=== PATIENT | male | born 1950 | race Caucasian/White ===

== ENCOUNTER 2016-06-27 09:28 | Emergency (ER) | payer MEDICARE, BC ==
[2016-06-27 09:50] VITALS: BP 153/101
--- NOTE | 2016-06-27 10:10 | EDM.PDOC ---
ED HPI GENERAL MEDICAL PROBLEM - General Chief Complaint: Neuro Symptoms/Deficits Stated Complaint: NUMBNESS / BURNING IN LIMBS Time Seen by Provider: 06/27/16 09:55 Source of Information: Reports: Patient, RN notes reviewed History Limitations: Reports: No limitations - History of Present Illness INITIAL COMMENTS - FREE TEXT/NARRATIVE: 65-year-old gentleman presents emergency department today with complaint of bilateral leg pain and burning superficial on the skin also has had difficulty with bilateral arm numbness he complains of more fatigue than usual has recently been on a long trip out to [facility]. Symptoms have been ongoing for one day initially rated the pain 10 out of 10 this has improved to 2 /10 with no intervention Bilateral Leg Pain Score (Numeric/FACES): 2 - Related Data Allergies Allergy/AdvReac Type Severity Reaction Status Date / Time erythromycin base Allergy Dizziness Verified 06/27/16 09:40 [From Mohsen-Tab] Home Meds: Home Meds Albuterol Sulfate [Proair Respiclick] 90 mcg IH Q4H 01/11/16 [History] Past Medical History HEENT History: Reports: Impaired vision Cardiovascular History: Reports: Hypertension Respiratory History: Reports: COPD Gastrointestinal History: Reports: Cholelithiasis, GERD Genitourinary History: Reports: Prostate disorder Other Genitourinary History: kidney cyst Musculoskeletal History: Reports: Back pain, chronic, Fracture, Osteoarthritis Neurological History: Reports: Concussion, Headaches, chronic - Infectious Disease History Infectious Disease History: Reports: Chicken pox, Measles, Mumps - Past Surgical History GI Surgical History: Reports: Cholecystectomy, Colonoscopy Neurological Surgical History: Reports: Lumbar spine Musculoskeletal Surgical History: Reports: Shoulder surgery, Other (see below) Other Musculoskeletal Surgeries/Procedures:: hand surgery Social & Family History - Tobacco Use Smoking Status *Q: Never Smoker Years of Tobacco use: 40 Second Hand Smoke Exposure: No - Caffeine Use Caffeine Use: Reports: Coffee - Alcohol Use Days Per Week of Alcohol Use: 0 - Recreational Drug Use Recreational Drug Use: No ED ROS GENERAL - Review of Systems Review Of Systems: See Below Constitutional: Reports: no symptoms HEENT: Reports: No symptoms Respiratory: Reports: No Symptoms Cardiovascular: Reports: No symptoms GI/Abdominal: Reports: No symptoms : Reports: no symptoms Musculoskeletal: Reports: leg pain Skin: Reports: no symptoms Neurological: Reports: Paresthesia, Tingling ED EXAM, GENERAL - Physical Exam Exam: See Below Free Text/Narrative:: General: Male, not in any distress, alert and oriented x3 HEENT: head is atraumatic normocephalic, eyes pupils equal round reactive to light, sclera clear no conjunctivitis appreciated. Ears tympanic membranes clear and looney landmarks and light reflex are present bilaterally canals are clear. Nose no septal deviation, nares are clear, no blood present. Mouth mucosa is moist and pink no erythema or exudate noted in soft palate, tongue is midline uvula is midline, dentition is intact. Neck: Supple no thyromegaly no tracheal deviation. Nodes: Cervical nodes subclavicular nodes nontender no palpable lymphadenopathy noted. Lungs: clear to auscultation bilaterally with symmetrical respirations, no adventitious noise appreciated. CV: Regular rate and rhythm S1 and S2 appreciated no murmurs rubs or gallops noted. Abdomen: Soft, nontender, no palpable masses or organomegaly appreciated, no distention no guarding bowel sounds are present, . Neuro: Cranial nerves II through XII grossly intact Skin: Warm and dry, intact Extremities: No lower extremity edema appreciated, Course - Vital Signs Last Recorded V/S: Last Vital Signs Temp 94.1 F L 06/27/16 09:48 Pulse 91 06/27/16 09:48 Resp 16 06/27/16 09:48 BP 153/101 H 06/27/16 09:48 Pulse Ox 97 06/27/16 09:48 - Orders/Labs/Meds Orders: Active Orders 24 hr Category Date Time Status VL Duplex Lwr Ext Veins Comp [US] Stat Exams 06/27/16 11:20 Ordered BABESIA MICROTI IGG AND IGM [REF] Urgent Lab 06/27/16 10:18 Received EHRLICHIA CHAFFEENSIS, IGG&IGM [REF] Urgent Lab 06/27/16 10:18 Received LYME AB SCREEN RFLX [REF] Urgent Lab 06/27/16 10:18 Received Labs: Laboratory Tests 06/27/16 06/27/16 06/27/16 Range/Units 10:17 10:17 10:17 WBC 4.6 (4.5-11.0) K/uL RBC 5.31 (4.30-5.90) M/uL Hgb 15.5 H (12.0-15.0) g/dL Hct 47.5 (40.0-54.0) % MCV 90 (80-98) fL MCH 29 (27-31) pg MCHC 33 (32-36) % Plt Count 159 (150-400) K/uL Neut % (Auto) 44 (36-66) % Lymph % (Auto) 36 (24-44) % Webb % (Auto) 17 H (2-6) % Eos % (Auto) 2 (2-4) % Baso % (Auto) 1 (0-1) % ESR 10 (0-20) mm/hr D-Dimer, Quantitative 1760 H (0.0-400.0) ng/mL Sodium (140-148) mmol/L Potassium (3.6-5.2) mmol/L Chloride (100-108) mmol/L Carbon Dioxide (21-32) mmol/L Anion Gap (5.0-14.0) mmol/L BUN (7-18) mg/dL Creatinine (0.8-1.3) mg/dL Est Cr Clr Drug Dosing mL/min Estimated GFR (MDRD) (>60) Glucose (74-106) mg/dL Calcium (8.5-10.1) mg/dL Total Bilirubin (0.2-1.0) mg/dL AST (15-37) U/L ALT (12-78) U/L Alkaline Phosphatase (46-116) U/L Creatine Kinase 177 (39-308) U/L C-Reactive Protein (0.0-0.3) mg/dL Total Protein (6.4-8.2) g/dL Albumin (3.4-5.0) g/dL Globulin (2.3-3.5) g/dL Albumin/Globulin Ratio (1.2-2.2) TSH, Ultra Sensitive (0.358-3.740) uIU/mL Urine Color Urine Appearance Urine pH (4.5-8.0) Ur Specific Reliance (1.008-1.030) Urine Protein (NEGATIVE) mg/dL Urine Glucose (UA) (NEGATIVE) mg/dL Urine Ketones (NEGATIVE) mg/dL Urine Occult Blood (NEGATIVE) Urine Nitrite (NEGAITVE) Urine Bilirubin (NEGATIVE) Urine Urobilinogen (NORMAL) mg/dL Ur Leukocyte Esterase (NEGATIVE) Urine RBC (0-5) Urine WBC (0-5) Ur Epithelial Cells Amorphous Sediment Urine Bacteria Urine Mucus 06/27/16 06/27/16 Range/Units 10:17 10:59 WBC (4.5-11.0) K/uL RBC (4.30-5.90) M/uL Hgb (12.0-15.0) g/dL Hct (40.0-54.0) % MCV (80-98) fL MCH (27-31) pg MCHC (32-36) % Plt Count (150-400) K/uL Neut % (Auto) (36-66) % Lymph % (Auto) (24-44) % Webb % (Auto) (2-6) % Eos % (Auto) (2-4) % Baso % (Auto) (0-1) % ESR (0-20) mm/hr D-Dimer, Quantitative (0.0-400.0) ng/mL Sodium 137 L (140-148) mmol/L Potassium 4.0 (3.6-5.2) mmol/L Chloride 102 (100-108) mmol/L Carbon Dioxide 27 (21-32) mmol/L Anion Gap 12.0 (5.0-14.0) mmol/L BUN 20 H (7-18) mg/dL Creatinine 1.3 (0.8-1.3) mg/dL Est Cr Clr Drug Dosing 66.81 mL/min Estimated GFR (MDRD) 55 L (>60) Glucose 97 (74-106) mg/dL Calcium 8.3 L (8.5-10.1) mg/dL Total Bilirubin 0.6 (0.2-1.0) mg/dL AST 47 H D (15-37) U/L ALT 64 D (12-78) U/L Alkaline Phosphatase 100 (46-116) U/L Creatine Kinase (39-308) U/L C-Reactive Protein 2.40 H (0.0-0.3) mg/dL Total Protein 7.7 (6.4-8.2) g/dL Albumin 3.6 (3.4-5.0) g/dL Globulin 4.1 H (2.3-3.5) g/dL Albumin/Globulin Ratio 0.9 L (1.2-2.2) TSH, Ultra Sensitive 3.324 (0.358-3.740) uIU/mL Urine Color Yellow Urine Appearance Clear Urine pH 5.0 (4.5-8.0) Ur Specific Reliance 1.025 (1.008-1.030) Urine Protein Negative (NEGATIVE) mg/dL Urine Glucose (UA) Normal (NEGATIVE) mg/dL Urine Ketones 15 H (NEGATIVE) mg/dL Urine Occult Blood Moderate (NEGATIVE) Urine Nitrite Negative (NEGAITVE) Urine Bilirubin Small (NEGATIVE) Urine Urobilinogen 1 (NORMAL) mg/dL Ur Leukocyte Esterase Negative (NEGATIVE) Urine RBC 0-5 (0-5) Urine WBC 0-5 (0-5) Ur Epithelial Cells Rare Amorphous Sediment See note Urine Bacteria Not seen Urine Mucus Not seen Departure - Departure Time of Disposition: 12:03 Disposition: Home, Self-Care 01 Condition: fair Clinical Impression: Bilateral leg paresthesia Forms: ED Department Discharge Additional Instructions: Continue to use Aleve, Motrin as needed, Please followup with your primary care provider in 7-10 days if not better, please call return to the emergency department with worsening of symptoms. - My Orders Last 24 Hours: My Active Orders 06/27/16 10:18 BABESIA MICROTI IGG AND IGM [REF] Urgent EHRLICHIA CHAFFEENSIS, IGG&IGM [REF] Urgent LYME AB SCREEN RFLX [REF] Urgent 06/27/16 11:20 VL Duplex Lwr Ext Veins Comp [US] Stat - Assessment/Plan Last 24 Hours: My Active Orders 06/27/16 10:18 BABESIA MICROTI IGG AND IGM [REF] Urgent EHRLICHIA CHAFFEENSIS, IGG&IGM [REF] Urgent LYME AB SCREEN RFLX [REF] Urgent 06/27/16 11:20 VL Duplex Lwr Ext Veins Comp [US] Stat Plan: Assessment Acuity = acute Site and laterality = bilateral leg numbness anterior lateral aspect Etiology = unclear etiology Manifestations = none Location of injury = home Lab values = d-dimer elevated at [id number] unclear etiology sodium low at 137 consistent hyponatremia AST mildly elevated at 47 TSH normal at 3.32 consistent with euthyroid urinalysis unremarkable ultrasound negative for any DVT Plan I did review lab work and ultrasound results with him he states the numbness and tingling has improved from yesterday tick panel is pending, plan is to follow up with his primary care provider in 7-10 days for reevaluation at which time the tick panel should be back Patient was in agreement with the plan all questions were answered, they were instructed to return to the emergency department or call for worsening symptoms. This note was dictated using Blackboard voice recognition software please call with any questions.
--- NOTE | 2016-06-27 13:22 | US ---
VL Duplex Lwr Ext Veins Comp HISTORY: Swelling, pain. FINDINGS: The deep veins of the lower extremities bilaterally demonstrate normal augmentation and co mpressibility. No evidence for deep venous thrombosis. IMPRESSION: Normal bilateral lower extremity venous Doppler ultrasound.
== END 2016-06-27 12:18 | disposition home or self-care (01) ==
LOC: JP.ED 09:28
DX: R20.2 Paresthesia of skin (principal); I10 Essential (primary) hypertension; J44.9 Chronic obstructive pulmonary disease, unspecified; K21.9 Gastro-esophageal reflux disease without esophagitis; M19.90 Unspecified osteoarthritis, unspecified site; Z88.1 Allergy status to other antibiotic agents; Z90.49 Acquired absence of other specified parts of digestive tract
CPT/HCPCS: 36415; 80053; 81001; 82550; 84443; 85025; 85379; 85651; 86140; 86618; 86666; 86666-59; 86753; 93970; 93970-26; 99282; 99284-25

== ENCOUNTER 2017-06-19 07:57 | Emergency (ER) | payer MEDICARE, BC ==
[2017-06-19 08:11] VITALS: BP 163/93
[2017-06-19] MEDS ORDERED: Albuterol/Ipratropium 3.0-0.5 MG/3 ML Neb Soln NEB ONE (08:25)
--- NOTE | 2017-06-19 08:31 | EDM.PDOC ---
ED HPI GENERAL MEDICAL PROBLEM - General Chief Complaint: Respiratory Problem Stated Complaint: COUGHING SOB Time Seen by Provider: 06/19/17 08:15 Source of Information: Reports: Patient, Old Records, RN History Limitations: Reports: No Limitations - History of Present Illness INITIAL COMMENTS - FREE TEXT/NARRATIVE: 66 yo male here with a non-productive cough for about 5 weeks. Has not been to the clinic(too hard to get in). No fever. Minimal SOB. Gets partial relief with his albuterol inhaler. Quit smoking about 5 yrs ago. Has been traveling a lot lately. R ear is plugged as well. No sneezing, but does have some rhinorrhea/ congestion. Onset Date: 05/15/17 Duration: Week(s):, Constant Location: Reports: Chest Severity: Mild Improves with: Reports: Rest Worsens with: Reports: Other (activity) Context: Reports: Other (Hx of mild COPD) Associated Symptoms: Reports: Cough, Shortness of Breath (minimal). 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) - Related Data Allergies Allergy/AdvReac Type Severity Reaction Status Date / Time erythromycin base Allergy Dizziness Verified 06/19/17 08:11 [From Mohsen-Tab] Home Meds: Home Meds Albuterol Sulfate [Proair Respiclick] 90 mcg IH Q4H 01/11/16 [History] Azithromycin [IJD: Azithromycin] 250 mg PO DAILY #6 tab 06/19/17 [Rx] Past Medical History HEENT History: Reports: Impaired Vision Cardiovascular History: Reports: Hypertension Respiratory History: Reports: COPD Gastrointestinal History: Reports: Cholelithiasis, GERD Genitourinary History: Reports: Prostate Disorder Other Genitourinary History: kidney cyst Musculoskeletal History: Reports: Back Pain, Chronic, Fracture, Osteoarthritis Neurological History: Reports: Concussion, Headaches, Chronic - Infectious Disease History Infectious Disease History: Reports: Chicken Pox, Measles, Mumps - Past Surgical History GI Surgical History: Reports: Cholecystectomy, Colonoscopy Neurological Surgical History: Reports: Lumbar Spine Musculoskeletal Surgical History: Reports: Shoulder Surgery, Other (See Below) Social & Family History - Tobacco Use Smoking Status *Q: Former Smoker Years of Tobacco use: 40 Used Tobacco, but Quit: Yes Month/Year Tobacco Last Used: 5 years Second Hand Smoke Exposure: No - Caffeine Use Caffeine Use: Reports: Coffee - Alcohol Use Days Per Week of Alcohol Use: 0 - Recreational Drug Use Recreational Drug Use: No ED ROS GENERAL - Review of Systems Review Of Systems: See Below Constitutional: Reports: No Symptoms HEENT: Reports: Ear Pain (mild on the R with plugging/decreased hearing), Rhinitis. Denies: Ear Discharge, Throat Pain Respiratory: Reports: Shortness of Breath (minimal), Cough, Sputum (rare). Denies: Wheezing, Pleuritic Chest Pain, Hemoptysis Cardiovascular: Reports: No Symptoms GI/Abdominal: Reports: No Symptoms : Reports: No Symptoms Musculoskeletal: Reports: No Symptoms Skin: Reports: No Symptoms Neurological: Reports: No Symptoms ED EXAM, GENERAL - Physical Exam Exam: See Below Exam Limited By: No Limitations General Appearance: Alert, WD/WN, No Apparent Distress Eye Exam: Bilateral Eye: Normal Inspection Ears: Normal External Exam, Normal Canal, Hearing Grossly Normal Ear Exam: Left Ear: TM normal (R TM with some erythema and bulging), Bilateral Ear: Auricle Normal, Canal Normal Nose: Normal Inspection, Normal Mucosa, No Blood, Clear Rhinorrhea Throat/Mouth: Normal Inspection, Normal Lips, Normal Oropharynx, Normal Voice, No Airway Compromise Head: Atraumatic, Normocephalic Neck: Normal Inspection, Supple, Non-Tender Respiratory/Chest: No Respiratory Distress, Lungs Clear, Normal Breath Sounds, No Accessory Muscle Use Cardiovascular: Regular Rate, Rhythm GI/Abdominal: Soft, Non-Tender Extremities: Normal Inspection, Normal Range of Motion, Non-Tender Neurological: Alert, Oriented, CN II-XII Intact, Normal Cognition, No Motor/ Sensory Deficits Psychiatric: Normal Affect, Normal Mood Skin Exam: Warm, Dry, Intact, Normal Color, No Rash Course - Vital Signs Text/Narrative:: No change in Peak flow with Duoneb tx. Last Recorded V/S: Last Vital Signs Temp 35.7 C 06/19/17 08:06 Pulse 90 06/19/17 08:06 Resp 18 06/19/17 08:06 BP 163/93 H 06/19/17 08:06 Pulse Ox 97 06/19/17 08:06 - Orders/Labs/Meds Orders: Active Orders 24 hr Category Date Time Status RT Aerosol Therapy [RC] ASDIRECTED Care 06/19/17 08:26 Active RT Peak Flow Measurement [RC] ASDIRECTED Care 06/19/17 08:24 Active Labs: Laboratory Tests 06/19/17 Range/Units 08:32 WBC 9.2 (4.5-11.0) K/uL RBC 5.38 (4.30-5.90) M/uL Hgb 15.4 H (12.0-15.0) g/dL Hct 47.7 (40.0-54.0) % MCV 89 (80-98) fL MCH 29 (27-31) pg MCHC 32 (32-36) % Plt Count 266 (150-400) K/uL Meds: Medications Discontinued Medications Generic Name Dose Route Start Last Admin Trade Name Freq PRN Reason Stop Dose Admin Albuterol/Ipratropium 3 ml 06/19/17 08:25 06/19/17 08:35 Duoneb 3.0-0.5 Mg/3 Ml NEB 06/19/17 08:26 3 ml ONETIME ONE Administration - Radiology Interpretation Free Text/Narrative:: CXR-negative Departure - Departure Time of Disposition: 09:36 Disposition: Home, Self-Care 01 Condition: Good Clinical Impression: Bronchitis Otitis media Qualifiers: Otitis media type: unspecified nonsuppurative Laterality: right Qualified Code( s): H65.91 - Unspecified nonsuppurative otitis media, right ear - Discharge Information Prescriptions: Azithromycin [IJD: Azithromycin] 250 mg PO DAILY #6 tab Referrals: Prasad Drake MD [Primary Care Provider] - Forms: ED Department Discharge - My Orders Last 24 Hours: My Active Orders 06/19/17 08:24 RT Peak Flow Measurement [RC] ASDIRECTED 06/19/17 08:26 RT Aerosol Therapy [RC] ASDIRECTED - Assessment/Plan Last 24 Hours: My Active Orders 06/19/17 08:24 RT Peak Flow Measurement [RC] ASDIRECTED 06/19/17 08:26 RT Aerosol Therapy [RC] ASDIRECTED
--- NOTE | 2017-06-19 09:32 | CR ---
Chest 2V HISTORY: cough for 5 weeks FINDINGS: Lungs appear clear and normally aerated. Cardiomediastinal silhouette is within normal limits. No vas cular redistribution or pleural fluid can be seen. Small anterior aspects are noted diffusely along t he thoracic spine. IMPRESSION: No acute chest abnormality is identified.
== END 2017-06-19 09:53 | disposition home or self-care (01) ==
LOC: JP.ED 07:57
DX: J40 Bronchitis, not specified as acute or chronic (principal); H65.91 Unspecified nonsuppurative otitis media, right ear; I10 Essential (primary) hypertension; Z88.1 Allergy status to other antibiotic agents; Z87.891 Personal history of nicotine dependence
CPT/HCPCS: 36415; 71046; 85027; 94640; 99283; 99284; J7620

== ENCOUNTER 2018-07-10 21:58 | Emergency (ER) | payer MEDICARE, BC ==
[2018-07-10 22:26] VITALS: BP 159/84
--- NOTE | 2018-07-10 23:17 | EDM.PDOC ---
ED HPI GENERAL MEDICAL PROBLEM - General Chief Complaint: General Stated Complaint: DIZZY Time Seen by Provider: 07/10/18 22:37 Source of Information: Reports: Patient History Limitations: Reports: No Limitations - History of Present Illness INITIAL COMMENTS - FREE TEXT/NARRATIVE: chief complaint: dizziness This is a 67 year old male present to the ER via POV, reports this morning woke up with dizziness. reports he was getting out of bed when he got very dizzy, no loss of balance. went to the bathroom. 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 He was about 50% better at noon, then 6 pm at supper was getting better, then at 9 pm felt 90% better just 10% off. He took a hot bath, went to rinse the shampoo out of his hair, tipped his head back became extreme dizziness without loss of balance. decided to come to ER to get evaluated. denies chest pain, fever, chills, nausea, vomiting, diarrhea. no acute vision changes. Primary Care: Dr. Howe [place] or Dr. 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 Chronic Health Conditions: arthritis, vision, COPD, unknown sweating for 6 months with multi evaluation with unknown cause. 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 ) Bilateral Knee Pain Score (Numeric/FACES): 7 - Related Data Allergies Allergy/AdvReac Type Severity Reaction Status Date / Time erythromycin base Allergy Dizziness Verified 07/10/18 22:23 [From Mohsen-Tab] Home Meds: Home Meds Albuterol Sulfate [Proair Respiclick] 90 mcg IH Q4H PRN 01/11/16 [History] Ibuprofen/Diphenhydramine Cit [Advil Pm Caplet] 1 each PO BEDTIME 02/10/18 [ History] Ibuprofen [Advil] 400 mg PO Q8H PRN 03/20/18 [History] Past Medical History HEENT History: Reports: Impaired Vision, Other (See Below) Other HEENT History: recent retinal scans at [place] Cardiovascular History: Reports: Hypertension Respiratory History: Reports: COPD Gastrointestinal History: Reports: Cholelithiasis, GERD Genitourinary History: Reports: Prostate Disorder, Other (See Below) Other Genitourinary History: kidney cyst left Musculoskeletal History: Reports: Back Pain, Chronic, Fracture, Osteoarthritis Neurological History: Reports: Concussion, Headaches, Chronic Dermatologic History: Reports: Other (See Below) Other Dermatologic History: rash on feet. - Infectious Disease History Infectious Disease History: Reports: Chicken Pox, Measles, Mumps - Past Surgical History Respiratory Surgical History: Reports: None GI Surgical History: Reports: Cholecystectomy, Colonoscopy, Hernia Repair/Other Male Surgical History: Reports: Vasectomy Neurological Surgical History: Reports: Lumbar Spine Musculoskeletal Surgical History: Reports: Shoulder Surgery, Other (See Below) Other Musculoskeletal Surgeries/Procedures:: hand repair with pin. back surgery x4. Social & Family History - Tobacco Use Smoking Status *Q: Former Smoker Used Tobacco, but Quit: Yes Month/Year Tobacco Last Used: 6 years - Caffeine Use Caffeine Use: Reports: Coffee - Recreational Drug Use Recreational Drug Use: No - Living Situation & Occupation Living situation: Reports: Occupation: Other ([employer]) ED ROS GENERAL - Review of Systems Review Of Systems: See Below Constitutional: Reports: No Symptoms HEENT: Reports: No Symptoms Respiratory: Reports: No Symptoms Cardiovascular: Reports: No Symptoms Endocrine: Reports: No Symptoms GI/Abdominal: Reports: No Symptoms : Reports: No Symptoms Musculoskeletal: Reports: Other (chronic pain in joints due to arthritis) Skin: Reports: No Symptoms Neurological: Reports: Dizziness Psychiatric: Reports: No Symptoms Hematologic/Lymphatic: Reports: No Symptoms Immunologic: Reports: No Symptoms ED EXAM, GENERAL - Physical Exam Exam: See Below Exam Limited By: No Limitations General Appearance: Alert, WD/WN, No Apparent Distress Eye Exam: Bilateral Eye: EOMI, Normal Inspection, PERRL Ears: Normal External Exam, Normal Canal, Hearing Grossly Normal, Normal TMs Ear Exam: Bilateral Ear: Auricle Normal, Canal Normal, TM normal Nose: Normal Inspection, Normal Mucosa, No Blood Throat/Mouth: Normal Inspection, Normal Lips, Normal Teeth, Normal Gums, Normal Oropharynx, Normal Voice, No Airway Compromise Head: Atraumatic, Normocephalic Neck: Normal Inspection, Supple, Non-Tender, Full Range of Motion Respiratory/Chest: No Respiratory Distress, Lungs Clear, Normal Breath Sounds, No Accessory Muscle Use, Chest Non-Tender Cardiovascular: Normal Peripheral Pulses, Regular Rate, Rhythm, No Edema, No Gallop, No JVD, No Murmur, No Rub GI/Abdominal: Normal Bowel Sounds, Soft, Non-Tender, No Organomegaly, No Distention, No Abnormal Bruit, No Mass (Male) Exam: Deferred Rectal (Males) Exam: Deferred Back Exam: Normal Inspection Extremities: Normal Inspection, Normal Range of Motion, Normal Capillary Refill Neurological: No Motor/Sensory Deficits Psychiatric: Normal Affect, Normal Mood Lymphatic: No Adenopathy Course - Vital Signs Last Recorded V/S: Last Vital Signs Temp 35.7 C 07/10/18 22:25 Pulse 82 07/10/18 22:25 Resp 13 07/10/18 22:25 BP 159/84 H 07/10/18 22:25 Pulse Ox 95 07/10/18 22:25 - Orders/Labs/Meds Orders: Active Orders 24 hr Category Date Time Status UA W/MICROSCOPIC [URIN] Urgent Lab 07/10/18 22:37 Ordered - Re-Assessments/Exams Free Text/Narrative Re-Assessment/Exam: 07/10/18 23:28 discussed will order Head CT to rule out any acute process. labs urine for any infection declines IV or lab draws, doesn't like needles. Mr. Stokes agrees with plan of care. 07/11/18 00:35 CT scan is negative for acute process, review with Mr. Stokes and given copy of report CT scan. will treat for Vertigo. trial of Meclizine. advise to follow up in Primary Care for recheck, return to ER if not improved or symptoms worsen. 07/11/18 00:38 unable to void Departure - Departure Time of Disposition: 00:36 Disposition: Home, Self-Care 01 Condition: Good Clinical Impression: Dizziness after extension of neck - Discharge Information *PRESCRIPTION DRUG MONITORING PROGRAM REVIEWED*: Not Applicable *COPY OF PRESCRIPTION DRUG MONITORING REPORT IN PATIENT KEVIN: Not Applicable Instructions: Vertigo, [id number], Dizziness Referrals: PCP,None [Primary Care Provider] - Forms: ED Department Discharge Care Plan Goals: Dizziness -Meclizine 25 mg chew tablet every 8 hours as needed for dizziness -follow up in Primary Care for recheck -return to ER if symptoms worsen or not improved. Given copy of CT report. - Problem List & Annotations (1) Dizziness after extension of neck SNOMED Code(s): 830848964 Code(s): R42 - DIZZINESS AND GIDDINESS Status: Acute Priority: High Current Visit: Yes - Problem List Review Problem List Initiated/Reviewed/Updated: Yes - My Orders Last 24 Hours: My Active Orders 07/10/18 22:37 UA W/MICROSCOPIC [URIN] Urgent - Assessment/Plan Last 24 Hours: My Active Orders 07/10/18 22:37 UA W/MICROSCOPIC [URIN] Urgent Plan: Dizziness -Meclizine 25 mg chew tablet every 8 hours as needed for dizziness -follow up in Primary Care for recheck -return to ER if symptoms worsen or not improved. Given copy of CT report.
--- NOTE | 2018-07-11 00:02 | CRLCT ---
INDICATION: New onset dizziness TECHNIQUE: CT Head without i.v. contrast. COMPARISON: None FINDINGS: CSF space: Unremarkable for age. Brain: No evidence of mass, acute infarction or hemorrhage is seen. No mass-effect or midline shift is seen. Mild diffuse cortical atrophy is noted. The brain parenchyma is otherwise normal in appearance with preservation of the looney-white matter junction. Calvarium: The visualized paranasal sinuses are well aerated. The mastoid air cells are clear. The visualized orbits are grossly unremarkable. The calvarium is unremarkable in appearance with no fractures identified. IMPRESSION: 1. No evidence of acute infarction, intracranial hemorrhage, or mass-effect seen. Please note that all CT scans at this facility use dose modulation, iterative reconstruction, and/or weight-based dosing when appropriate to reduce radiation dose to as low as reasonably achievable. Dictated by: Teja Sandhu MD @ 07/10/2018 23:59:25 (Electronically Signed)
[2018-07-11] MEDS ORDERED: Meclizine 25 MG Tab PO ONE (00:38)
== END 2018-07-11 00:55 | disposition home or self-care (01) ==
LOC: JP.ED 21:58
DX: R42 Dizziness and giddiness (principal); I10 Essential (primary) hypertension; J44.9 Chronic obstructive pulmonary disease, unspecified; K21.9 Gastro-esophageal reflux disease without esophagitis; Z88.1 Allergy status to other antibiotic agents; Z87.891 Personal history of nicotine dependence
CPT/HCPCS: 70450; 99284-25

== ENCOUNTER 2019-03-05 09:58 | Emergency (ER) | payer MEDICARE, BC ==
[2019-03-05] MEDS ORDERED: Morphine 4 MG/ML Syringe IVPUSH PRN (10:06)
[2019-03-05] MEDS ORDERED: Heparin Sodium 5,000 Units/ML Vial IVPUSH ONE (10:06)
[2019-03-05] MEDS ORDERED: Clopidogrel 75 MG Tab PO ONE (10:06)
[2019-03-05] MEDS ORDERED: Ondansetron 4 MG/2 ML SDV IVPUSH ONE (10:06)
[2019-03-05] MEDS ORDERED: Aspirin 81 MG Tab.Chew PO ONE (10:06)
[2019-03-05] MEDS ORDERED: Sodium Chloride 0.9% 10 ML Syringe FLUSH PRN (10:06)
[2019-03-05] MEDS: Nitroglycerin 0.4 MG Tab.SL SL PRN ×2 (10:21→10:26)
[2019-03-05] MEDS ORDERED: LORazepam 2 MG/ML SDV IVPUSH ONE (10:23)
[2019-03-05] MEDS ORDERED: LORazepam 2 MG/ML SDV ONE (10:26)
[2019-03-05] MEDS ORDERED: Nitroglycerin/D5W 25 MG/250 ML BOTTLE IV SCH (10:30)
[2019-03-05] MEDS ORDERED: Heparin Sodium/D5W 25,000 UNITS/500 ML BAG IV SCH (10:30)
--- NOTE | 2019-03-05 10:35 | EDM.PDOC ---
ED HPI GENERAL MEDICAL PROBLEM - General Chief Complaint: Chest Pain Stated Complaint: S.O.B. AND CHEST PAINS Time Seen by Provider: 03/05/19 10:01 Source of Information: Reports: Patient, RN Notes Reviewed History Limitations: Reports: No Limitations - History of Present Illness INITIAL COMMENTS - FREE TEXT/NARRATIVE: 68-year-old gentleman presents emergency department today complaint of chest pain and shortness of breath he states the chest pain started about 30 minutes prior to his presentation to the ED he is very sweaty he feels short of breath no nausea he has no cardiac history other than his father in his 50s from a myocardial infarction he does have a remote tobacco use history. pain Pain Score (Numeric/FACES): 5 - Related Data Allergies Allergy/AdvReac Type Severity Reaction Status Date / Time erythromycin base Allergy Dizziness Verified 03/05/19 10:07 [From Mohsen-Tab] Home Meds: Home Meds Albuterol Sulfate [Proair Respiclick] 90 mcg IH Q4H PRN 01/11/16 [History] Ibuprofen/Diphenhydramine Cit [Advil Pm Caplet] 1 each PO BEDTIME 02/10/18 [ History] Ibuprofen [Advil] 400 mg PO Q8H PRN 03/20/18 [History] Past Medical History HEENT History: Reports: Impaired Vision, Other (See Below) Other HEENT History: recent retinal scans at [place] Cardiovascular History: Reports: Hypertension Respiratory History: Reports: COPD Gastrointestinal History: Reports: Cholelithiasis, GERD Genitourinary History: Reports: Prostate Disorder, Other (See Below) Other Genitourinary History: kidney cyst left Musculoskeletal History: Reports: Back Pain, Chronic, Fracture, Osteoarthritis Neurological History: Reports: Concussion, Headaches, Chronic Dermatologic History: Reports: Other (See Below) Other Dermatologic History: rash on feet. - Infectious Disease History Infectious Disease History: Reports: Chicken Pox, Measles, Mumps - Past Surgical History Respiratory Surgical History: Reports: None GI Surgical History: Reports: Cholecystectomy, Colonoscopy, Hernia Repair/Other Male Surgical History: Reports: Vasectomy Neurological Surgical History: Reports: Lumbar Spine Musculoskeletal Surgical History: Reports: Shoulder Surgery, Other (See Below) Other Musculoskeletal Surgeries/Procedures:: hand repair with pin. back surgery x4. Social & Family History - Tobacco Use Smoking Status *Q: Former Smoker Used Tobacco, but Quit: Yes Month/Year Tobacco Last Used: 9 - Caffeine Use Caffeine Use: Reports: Coffee - Living Situation & Occupation Living situation: Reports: Occupation: Other ([employer]) ED ROS GENERAL - Review of Systems Review Of Systems: See Below Constitutional: Reports: No Symptoms HEENT: Reports: No Symptoms Respiratory: Reports: Shortness of Breath Cardiovascular: Reports: Chest Pain GI/Abdominal: Reports: No Symptoms : Reports: No Symptoms ED EXAM, GENERAL - Physical Exam Exam: See Below Exam Limited By: No Limitations General Appearance: Alert, WD/WN, No Apparent Distress Respiratory/Chest: No Respiratory Distress, Lungs Clear, Normal Breath Sounds, No Accessory Muscle Use, Chest Non-Tender Cardiovascular: Regular Rate, Rhythm, No Murmur GI/Abdominal: Soft, Non-Tender Course - Vital Signs Last Recorded V/S: Last Vital Signs Temp 96.4 F 03/05/19 10:08 Pulse 73 03/05/19 10:08 Resp 20 03/05/19 10:08 BP 137/81 03/05/19 10:26 Pulse Ox 100 03/05/19 10:08 - Orders/Labs/Meds Orders: Active Orders 24 hr Category Date Time Status Cardiac Monitoring [RC] STAT Care 03/05/19 10:06 Ordered Communication Order [RC] Per Unit Routine Care 03/05/19 10:06 Ordered Communication Order [RC] Per Unit Routine Care 03/05/19 10:06 Ordered EKG Documentation Completion [RC] ASDIRECTED Care 03/05/19 10:27 Ordered Oxygen Therapy [RC] ASDIRECTED Care 03/05/19 10:06 Ordered Peripheral IV Care [RC] . DIRECTED Care 03/05/19 10:07 Ordered Chest 1V Frontal [CR] Stat Exams 03/05/19 10:06 Ordered BASIC METABOLIC PANEL,BMP [CHEM] Stat Lab 03/05/19 10:06 Ordered TROPONIN I [CHEM] Stat Lab 03/05/19 10:06 Ordered Heparin Sodium/D5W [Heparin 25,000 Units in D5W 500 ML] Med 03/05/19 10:30 Ordered 25,000 units in 500 ml IV TITRATE Morphine Med 03/05/19 10:06 Ordered 4 mg IVPUSH Q10M PRN Nitroglycerin 25 MG in D5W @ 10 MCG/MIN(250ml) Premix Med 03/05/19 10:30 Ordered Nitroglycerin/D5W [Nitroglycerin 25 MG/D5W 250 ML] 25 mg in 250 ml IV TITRATE Nitroglycerin [Nitrostat] Med 03/05/19 10:06 Ordered 0.4 mg SL Q5M PRN Sodium Chloride 0.9% [Saline Flush] Med 03/05/19 10:06 Ordered 10 ml FLUSH ASDIRECTED PRN Peripheral IV Insertion Adult [OM.PC] Stat Oth 03/05/19 10:06 Ordered EKG 12 Lead [EK] Stat Ther 03/05/19 10:27 Ordered Medication Orders Heparin Sodium/Dextrose (Heparin 25,000 Units In D5w 500 Ml) 25,000 units in 500 mls @ 0 mls/hr IV TITRATE MEGAN; Protocol Nitroglycerin/Dextrose (Nitroglycerin 25 Mg/D5w 250 Ml) 25 mg in 250 mls @ 6 mls/hr IV TITRATE MEGAN; Protocol Morphine Sulfate (Morphine) 4 mg IVPUSH Q10M PRN PRN Reason: Chest Pain Stop: 03/06/19 10:08 Last Admin: 03/05/19 10:20 Dose: 4 mg Nitroglycerin (Nitrostat) 0.4 mg SL Q5M PRN PRN Reason: Chest Pain Stop: 03/06/19 10:08 Last Admin: 03/05/19 10:26 Dose: 0.4 mg Admin: 03/05/19 10:21 Dose: 0.4 mg Sodium Chloride (Saline Flush) 10 ml FLUSH ASDIRECTED PRN PRN Reason: Keep Vein Open Labs: Laboratory Tests 03/05/19 03/05/19 Range/Units 10:12 10:12 WBC 10.2 (4.5-11.0) K/uL RBC 5.28 (4.30-5.90) M/uL Hgb 15.2 H (12.0-15.0) g/dL Hct 48.4 (40.0-54.0) % MCV 92 (80-98) fL MCH 29 (27-31) pg MCHC 31 L (32-36) % Plt Count 307 (150-400) K/uL Neut % (Auto) 44 (36-66) % Lymph % (Auto) 43 (24-44) % [place] % (Auto) 10 H (2-6) % Eos % (Auto) 3 (2-4) % Baso % (Auto) 0 (0-1) % PT 10.2 (9.5-12.0) sec INR 0.94 (0.80-1.20) Meds: Medications Generic Name Dose Route Start Last Admin Trade Name Adan PRN Reason Stop Dose Admin Heparin Sodium/Dextrose 25,000 units in 500 mls @ 0 mls/hr 03/05/19 10:30 Heparin 25,000 Units In D5w 500 Ml IV TITRATE MEGAN Protocol 12 UNITS/KG/HR Nitroglycerin/Dextrose 25 mg in 250 mls @ 6 mls/hr 03/05/19 10:30 Nitroglycerin 25 Mg/D5w 250 Ml IV TITRATE MEGAN Protocol 10 MCG/MIN Morphine Sulfate 4 mg 03/05/19 10:03/05/19 10:20 Morphine IVPUSH 03/06/19 10:08 4 mg Q10M PRN Administration Chest Pain Nitroglycerin 0.4 mg 03/05/19 10:06 03/05/19 10:26 Nitrostat SL 03/06/19 10:08 0.4 mg Q5M PRN Administration Chest Pain Sodium Chloride 10 ml 03/05/19 10:06 Saline Flush FLUSH ASDIRECTED PRN Keep Vein Open Discontinued Medications Generic Name Dose Route Start Last Admin Trade Name Adan PRN Reason Stop Dose Admin Aspirin 324 mg 03/05/19 10:06 03/05/19 10:05 Aspirin PO 03/05/19 10:07 324 mg ONETIME ONE Administration Clopidogrel Bisulfate 300 mg 03/05/19 10:06 03/05/19 10:23 Plavix PO 03/05/19 10:07 600 mg ONETIME ONE Administration Heparin Sodium (Porcine) 4,000 units 03/05/19 10:06 03/05/19 10:10 Heparin Sodium IVPUSH 03/05/19 10:07 4,000 units BOLUS ONE Administration Lorazepam 1 mg 03/05/19 10:23 Ativan IVPUSH 03/05/19 10:24 ONETIME ONE Ondansetron HCl 4 mg 03/05/19 10:06 Zofran IVPUSH 03/05/19 10:07 ONETIME ONE Departure - Departure Time of Disposition: 10:38 Disposition: DC/Tfer to Acute Hospital 02 Reason for Transfer *Q: Primary PCI Indicated Condition: Fair Clinical Impression: Acute myocardial infarction Qualifiers: Myocardial infarction type: ST elevation myocardial infarction Involved coronary artery: unspecified coronary artery Qualified Code(s): I21.3 - ST elevation (STEMI) myocardial infarction of unspecified site Referrals: PCP,None [Primary Care Provider] - Sepsis Event Note - Evaluation Sepsis Screening Result: No Definite Risk - Focused Exam Vital Signs: Vital Signs Temp Pulse Resp BP BP Pulse Ox 03/05/19 10:26 137/81 03/05/19 10:21 128/81 03/05/19 10:08 96.4 F 73 20 137/78 100 Date Exam was Performed: 03/05/19 Time Exam was Performed: 10:27 - My Orders Last 24 Hours: My Active Orders 03/05/19 10:06 Cardiac Monitoring [RC] STAT Communication Order [RC] Per Unit Routine Communication Order [RC] Per Unit Routine Oxygen Therapy [RC] ASDIRECTED Chest 1V Frontal [CR] Stat BASIC METABOLIC PANEL,BMP [CHEM] Stat TROPONIN I [CHEM] Stat Morphine 4 mg IVPUSH Q10M PRN Nitroglycerin [Nitrostat] 0.4 mg SL Q5M PRN Sodium Chloride 0.9% [Saline Flush] 10 ml FLUSH ASDIRECTED PRN Peripheral IV Insertion Adult [OM.PC] Stat 03/05/19 10:07 Peripheral IV Care [RC] . DIRECTED 03/05/19 10:27 EKG Documentation Completion [RC] ASDIRECTED EKG 12 Lead [EK] Stat 03/05/19 10:30 Heparin Sodium/D5W [Heparin 25,000 Units in D5W 500 ML] 25,000 units in 500 ml IV TITRATE Nitroglycerin 25 MG in D5W @ 10 MCG/MIN(250ml) Premix Nitroglycerin/D5W [ Nitroglycerin 25 MG/D5W 250 ML] 25 mg in 250 ml IV TITRATE - Assessment/Plan Last 24 Hours: My Active Orders 03/05/19 10:06 Cardiac Monitoring [RC] STAT Communication Order [RC] Per Unit Routine Communication Order [RC] Per Unit Routine Oxygen Therapy [RC] ASDIRECTED Chest 1V Frontal [CR] Stat BASIC METABOLIC PANEL,BMP [CHEM] Stat TROPONIN I [CHEM] Stat Morphine 4 mg IVPUSH Q10M PRN Nitroglycerin [Nitrostat] 0.4 mg SL Q5M PRN Sodium Chloride 0.9% [Saline Flush] 10 ml FLUSH ASDIRECTED PRN Peripheral IV Insertion Adult [OM.PC] Stat 03/05/19 10:07 Peripheral IV Care [RC] . DIRECTED 03/05/19 10:27 EKG Documentation Completion [RC] ASDIRECTED EKG 12 Lead [EK] Stat 03/05/19 10:30 Heparin Sodium/D5W [Heparin 25,000 Units in D5W 500 ML] 25,000 units in 500 ml IV TITRATE Nitroglycerin 25 MG in D5W @ 10 MCG/MIN(250ml) Premix Nitroglycerin/D5W [ Nitroglycerin 25 MG/D5W 250 ML] 25 mg in 250 ml IV TITRATE Plan: Assessment Acuity = acute Site and laterality = ST elevation myocardial infarction Etiology = probable underlying coronary artery disease Manifestations = pain Location of injury = Home Lab values = pending EKG shows ST changes in V2 V3 and V4 no reciprocal changes appreciated Plan Call discussed case with Dr. Jaime counter sales representative breakdown person [facility] spoke with him at 1020 thus far he has been given aspirin 600 of Plavix 4 mg morphine, 1 sublingual nitrogen, 4000 unit heparin bolus initiated heparin drip and nitro drip pain did come down from a 5 to a 2 with a nitro will be transported via EMS ground This note was dictated using [employer] voice recognition software please call with any questions on syntax or grammar.
[2019-03-05 10:44] VITALS: PULSE 67
[2019-03-05 10:45] VITALS: BP 137/81
== END 2019-03-05 10:54 ==
LOC: JP.ED 09:58
DX: I21.3 ST elevation (STEMI) myocardial infarction of unspecified site (principal); I10 Essential (primary) hypertension; J44.9 Chronic obstructive pulmonary disease, unspecified; Z88.1 Allergy status to other antibiotic agents; Z79.899 Other long term (current) drug therapy; Z87.891 Personal history of nicotine dependence
CPT/HCPCS: 36415; 80048; 84484; 85025; 85610; 93005; 93010; 96374; 96375; 99291; A9270; J1644; J2060; J2270

== ENCOUNTER 2019-11-18 10:21 | Emergency (ER) | payer MEDICARE, BC ==
[2019-11-18 10:56] VITALS: BP 151/81; PULSE 95
--- NOTE | 2019-11-18 11:04 | EDM.PDOC ---
ED HPI GENERAL MEDICAL PROBLEM - General Chief Complaint: General Stated Complaint: JOINT PAIN Time Seen by Provider: 11/18/19 10:45 Source of Information: Reports: Patient, Old Records, RN History Limitations: Reports: No Limitations - History of Present Illness INITIAL COMMENTS - FREE TEXT/NARRATIVE: 69 yo male was told to come to the ED today by the [facility] locally for increased joint pain. He was seen last week for this problem just as it was starting and his blood work that was done was normal. He called there today wondering if his problem could be from Lyme's and this is when he was referred. He also mentions nocturia x many trips/night to bathroom. Has a urology appt for 11/29/2019. Also mentions some intermittent dizziness not associated with a spinning sensation or nausea and not related to standing up from lying or sitting. He has chronic diarrhea. He though his dizziness sx's began after being placed on some heart medicines this past February. Since his recent clinic visit he has noticed his knees, L shoulder, and his MC joints of both hands. The hand joints he feels are actually swollen. He mentions an issue with some degree of renal failure recently which is also why he will be seeing urology. Onset: Gradual Onset Date: 11/14/19 Duration: Day(s):, Getting Worse Location: Reports: Head (dizzy), Pelvis (nocturia), Upper Extremity, Left, Upper Extremity, Right, Lower Extremity, Left, Lower Extremity, Right Quality: Reports: Ache Severity: Moderate Improves with: Reports: Rest Worsens with: Reports: Movement Context: Reports: Other (See HPI) Associated Symptoms: Denies: Diaphoresis, Fever/Chills, Headaches, Nausea/Vomiting Treatments [employer]: Reports: Other (see below) (none) joints Pain Score (Numeric/FACES): 4 - Related Data Allergies Allergy/AdvReac Type Severity Reaction Status Date / Time cortisone Allergy Severe retinal Verified 11/18/19 10:35 erythromycin base Allergy Dizziness Verified 11/18/19 10:35 [From Mohsen-Tab] Home Meds: Home Meds Albuterol Sulfate [Proair Respiclick] 90 mcg IH Q4H PRN 01/11/16 [History] Ibuprofen/Diphenhydramine Cit [Advil Pm Caplet] 1 each PO BEDTIME 02/10/18 [History] Ibuprofen [Advil] 400 mg PO Q8H PRN 03/20/18 [History] Aspirin [Ecotrin EC] 81 mg PO DAILY 11/18/19 [History] Clopidogrel [Plavix] 75 mg PO DAILY 11/18/19 [History] Nitroglycerin [Nitrostat] 0.4 mg SL ASDIRECTED 11/18/19 [History] Umeclidinium Brm/Vilanterol Tr [Anoro Ellipta 62.5-25 MCG] 1 each IH DAILY 11/18/19 [History] carvediloL [Carvedilol] 3.125 mg PO BID 11/18/19 [History] lisinopriL [Prinivil] 5 mg PO DAILY 11/18/19 [History] Past Medical History HEENT History: Reports: Impaired Vision, Other (See Below) Other HEENT History: recent retinal scans at [place] Cardiovascular History: Reports: Hypertension, VT, Stents Respiratory History: Reports: COPD Gastrointestinal History: Reports: Cholelithiasis, GERD Genitourinary History: Reports: Prostate Disorder, Other (See Below) Other Genitourinary History: kidney cyst left. stage 3 kidney disease Musculoskeletal History: Reports: Back Pain, Chronic, Fracture, Osteoarthritis Neurological History: Reports: Concussion, Headaches, Chronic Dermatologic History: Reports: Other (See Below) Other Dermatologic History: rash on feet. - Infectious Disease History Infectious Disease History: Reports: Chicken Pox, Measles, Mumps - Past Surgical History Respiratory Surgical History: Reports: None GI Surgical History: Reports: Cholecystectomy, Colonoscopy, Hernia Repair/Other Male Surgical History: Reports: Vasectomy Neurological Surgical History: Reports: Lumbar Spine Musculoskeletal Surgical History: Reports: Shoulder Surgery, Other (See Below) Other Musculoskeletal Surgeries/Procedures:: hand repair with pin. back surgery x4. Social & Family History - Tobacco Use Smoking Status *Q: Never Smoker - Caffeine Use Caffeine Use: Reports: Coffee - Living Situation & Occupation Living situation: Reports: Occupation: Other ([employer]) ED [facility] GENERAL - Review of Systems Review Of Systems: See Below Constitutional: Reports: No Symptoms HEENT: Reports: No Symptoms Respiratory: Reports: No Symptoms Cardiovascular: Reports: No Symptoms Endocrine: Reports: No Symptoms GI/Abdominal: Reports: Diarrhea (chronic). Denies: Abdominal Pain, Bloody Stool, Hematemesis, Hematochezia, Melena : Reports: Frequency. Denies: Dysuria Musculoskeletal: Reports: Shoulder Pain (left), Hand Pain (bilateral), Joint Pain (both knees), Joint Swelling (hands(MC joints)) Skin: Reports: No Symptoms Neurological: Reports: Dizziness. Denies: Headache, Syncope, Tingling, Trouble Speaking, Difficulty Walking, Change in Speech, Gait Disturbance ED EXAM, GENERAL - Physical Exam Exam: See Below Exam Limited By: No Limitations General Appearance: Alert, WD/WN, No Apparent Distress Eye Exam: Bilateral Eye: Normal Inspection Ears: Normal External Exam, Normal Canal, Hearing Grossly Normal Ear Exam: Bilateral Ear: Auricle Normal, Canal Normal Nose: Normal Inspection, No Blood Throat/Mouth: Normal Inspection, Normal Lips, Normal Oropharynx, Normal Voice, No Airway Compromise Head: Atraumatic, Normocephalic Neck: Normal Inspection Respiratory/Chest: No Respiratory Distress, Lungs Clear, Normal Breath Sounds, No Accessory Muscle Use Cardiovascular: Regular Rate, Rhythm, No Edema GI/Abdominal: Normal Bowel Sounds, Soft, Non-Tender, No Distention Back Exam: Normal Inspection. No: CVA Tenderness (R), CVA Tenderness (L) Extremities: Normal Range of Motion, No Pedal Edema, Other (MC joints of digits 2-5 are bilaterally tender and a bit swollen. ) Neurological: Alert, Oriented, CN II-XII Intact, Normal Cognition, No Motor/Sensory Deficits Psychiatric: Normal Affect, Normal Mood Skin Exam: Warm, Dry, Intact, Normal Color, No Rash Course - Vital Signs Text/Narrative:: Orthostats normal post void bladder scan 51 ml Last Recorded V/S: Last Vital Signs Temp 37.1 C 11/18/19 10:34 Pulse 95 11/18/19 10:34 Resp 20 11/18/19 10:34 BP 151/81 H 11/18/19 10:34 Pulse Ox 94 L 11/18/19 10:34 Orthostatic Blood Pressure [ 137/85 Standing] Orthostatic Blood Pressure [ 143/80 Sitting] Orthostatic Blood Pressure [ 130/80 Supine] - Orders/Labs/Meds Orders: Active Orders 24 hr Category Date Time Status Bladder Scan [RC] ASDIRECTED Care 11/18/19 10:49 Active Orthostatic Vital Signs [RC] ASDIRECTED Care 11/18/19 10:45 Active OSVALDO W/REFLEX Routine Lab 11/18/19 11:01 Received LYME, TOTAL AB TEST/REFLEX Routine Lab 11/18/19 11:01 Received RHEUMATOID ARTHRITIS FACTOR Routine Lab 11/18/19 11:18 Received Labs: Laboratory Tests 11/18/19 11/18/19 11/18/19 Range/Units 11:01 11:01 11:46 WBC 6.4 (4.5-11.0) K/uL RBC 5.13 (4.30-5.90) M/uL Hgb 14.3 (12.0-15.0) g/dL Hct 46.7 (40.0-54.0) % MCV 91 (80-98) fL MCH 28 (27-31) pg MCHC 31 L (32-36) % Plt Count 236 (150-400) K/uL Sodium 138 L (140-148) mmol/L Potassium 4.2 (3.6-5.2) mmol/L Chloride 103 (100-108) mmol/L Carbon Dioxide 24 (21-32) mmol/L Anion Gap 15.2 H (5.0-14.0) mmol/L BUN 22 H (7-18) mg/dL Creatinine 1.5 H (0.8-1.3) mg/dL Est Cr Clr Drug Dosing 54.77 mL/min Estimated GFR (MDRD) 46 L (>60) Glucose 101 (74-106) mg/dL Calcium 8.9 (8.5-10.1) mg/dL C-Reactive Protein 0.18 (0.0-0.3) mg/dL Urine Color Yellow (YELLOW) Urine Appearance Clear (CLEAR) Urine pH 5.0 (5.0-8.0) Ur Specific [place] >= 1.030 (1.008-1.030) Urine Protein Negative (NEGATIVE) mg/dL Urine Glucose (UA) Negative (NEGATIVE) mg/dL Urine Ketones Negative (NEGATIVE) mg/dL Urine Occult Blood Trace-lysed H (NEGATIVE) Urine Nitrite Negative (NEGATIVE) Urine Bilirubin Negative (NEGATIVE) Urine Urobilinogen 0.2 (0.2-1.0) EU/dL Ur Leukocyte Esterase Negative (NEGATIVE) Urine RBC 0-5 (0-5) Urine WBC 0-5 (0-5) Ur Epithelial Cells Few Amorphous Sediment Not seen Urine Bacteria Not seen Urine Mucus Moderate Departure - Departure Time of Disposition: 12:29 Disposition: Home, Self-Care 01 Condition: Fair Clinical Impression: Inflammatory arthritis, Dizziness, Frequency of urination - Discharge Information *PRESCRIPTION DRUG MONITORING PROGRAM REVIEWED*: No *COPY OF PRESCRIPTION DRUG MONITORING REPORT IN PATIENT KEVIN: No Referrals: Chris Howe MD [Primary Care Provider] - Forms: ED Department Discharge Additional Instructions: Use acetaminophen up to 1000 mg every 6 hrs for pain relief. Avoid ibuprofen, Aleve, and aspirin more than one a day to protect your kidneys. Keep your sc heduled appt with urology. There are 3 tests that were ordered today(Rheumatoid Factor, Lyme titer, and OSVALDO titer) that are still pending that should be available for your provider by the end of the week. Drink more water than you have been as your urine today was very concentrated. Return as needed. Tumeric is a OTC agent that is very safe and may give you some relief of your joint pain without hurting your kidneys. Return as needed, or see your provider on ? of this week to review your outstanding tests. I could not find an explanation for your dizziness on your exam, vital signs or tests today. Sepsis Event Note (ED) - Evaluation Sepsis Screening Result: No Definite Risk - Focused Exam Vital Signs: Vital Signs Temp Pulse Resp BP Pulse Ox 11/18/19 10:34 37.1 C 95 20 151/81 H 94 L - My Orders Last 24 Hours: My Active Orders 11/18/19 10:45 Orthostatic Vital Signs [RC] ASDIRECTED 11/18/19 10:49 Bladder Scan [RC] ASDIRECTED 11/18/19 11:01 OSVALDO W/REFLEX Routine LYME, TOTAL AB TEST/REFLEX Routine 11/18/19 11:18 RHEUMATOID ARTHRITIS FACTOR Routine - Assessment/Plan Last 24 Hours: My Active Orders 11/18/19 10:45 Orthostatic Vital Signs [RC] ASDIRECTED 11/18/19 10:49 Bladder Scan [RC] ASDIRECTED 11/18/19 11:01 OSVALDO W/REFLEX Routine LYME, TOTAL AB TEST/REFLEX Routine 11/18/19 11:18 RHEUMATOID ARTHRITIS FACTOR Routine
[2019-11-20 09:13] LABS: LYME IGG/IGM AB <0.91 ISR (0.00-0.90)
== END 2019-11-18 12:40 | disposition home or self-care (01) ==
LOC: JP.ED 10:21
DX: M17.0 Bilateral primary osteoarthritis of knee (principal); M19.042 Primary osteoarthritis, left hand; M19.041 Primary osteoarthritis, right hand; M19.012 Primary osteoarthritis, left shoulder; R42 Dizziness and giddiness; R35.1 Nocturia; R19.7 Diarrhea, unspecified; I12.9 Hypertensive chronic kidney disease with stage 1 through stage 4 chronic kidney disease, or unspecified chronic kidney disease; N18.3 Chronic kidney disease, stage 3 (moderate); I25.2 Old myocardial infarction; J44.9 Chronic obstructive pulmonary disease, unspecified; Z88.1 Allergy status to other antibiotic agents; Z88.8 Allergy status to other drugs, medicaments and biological substances; Z79.82 Long term (current) use of aspirin; Z79.02 Long term (current) use of antithrombotics/antiplatelets; Z79.899 Other long term (current) drug therapy; Z95.5 Presence of coronary angioplasty implant and graft; Z90.49 Acquired absence of other specified parts of digestive tract
CPT/HCPCS: 36415; 80048; 81001; 85027; 86038; 86140; 86431; 86618; 99284

== ENCOUNTER 2021-01-25 02:34 | Emergency (ER) | payer MEDICARE, BC ==
[2021-01-25 03:02] VITALS: BP 149/91; PULSE 72
--- NOTE | 2021-01-25 03:32 | EDM.PDOC ---
ED HPI GENERAL MEDICAL PROBLEM - General Chief Complaint: Respiratory Problem Stated Complaint: COUGH Time Seen by Provider: 01/25/21 03:00 Source of Information: Reports: Patient, Family History Limitations: Reports: No Limitations - History of Present Illness INITIAL COMMENTS - FREE TEXT/NARRATIVE: 70-year-old male with worsening cough, wheezing for the past 2 weeks. He just finished a course of Zithromax and it is not helping. He has been tested for Covid and that is negative. No fevers or chills, no chest pain, he feels like if he could just "cough something up" he would be better. 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 Onset: Gradual Duration: Week(s): (Symptoms for the past 2 weeks) Associated Symptoms: Reports: Cough, Other (Wheezing). Denies: Fever/Chills, Headaches, Shortness of Breath - Related Data Allergies Allergy/AdvReac Type Severity Reaction Status Date / Time cortisone Allergy Severe retinal Verified 01/25/21 02:50 erythromycin base Allergy Dizziness Verified 01/25/21 02:50 [From [facility]sen-Tab] Home Meds: Home Meds Albuterol Sulfate [Proair Respiclick] 90 mcg IH Q4H PRN 01/11/16 [History] Ibuprofen/Diphenhydramine Cit [Advil Pm Caplet] 1 each PO BEDTIME 02/10/18 [History] Ibuprofen [Advil] 600 mg PO Q4H PRN 03/20/18 [History] Aspirin [Ecotrin EC] 81 mg PO DAILY 11/18/19 [History] Clopidogrel [Plavix] 75 mg PO DAILY 11/18/19 [History] Nitroglycerin [Nitrostat] 0.4 mg SL ASDIRECTED 11/18/19 [History] Umeclidinium Brm/Vilanterol Tr [Anoro Ellipta 62.5-25 MCG] 1 each IH DAILY 11/18/19 [History] carvediloL [Carvedilol] 3.125 mg PO BID 11/18/19 [History] lisinopriL [Prinivil] 5 mg PO DAILY 11/18/19 [History] Azithromycin [Zithromax] 1 tab PO ASDIRECTED 01/25/21 [History] Ciclopirox Olamine [Loprox] 1 dose TOP BID 01/25/21 [History] Fluticasone Furoate [Flonase Sensimist] 2 dose INH DAILY 01/25/21 [History] Gabapentin [Neurontin] 1 tab PO BEDTIME 01/25/21 [History] Ketoconazole [Nizoral 2% Crm] 1 dose TOP BID 01/25/21 [History] Multivit-Min/Folic Acid/Vit K1 [Multi For Him Softgel] 1 tab PO DAILY 01/25/21 [History] Turmeric Root Extract [Turmeric] 1 tab PO DAILY 01/25/21 [History] atorvaSTATin Calcium [Atorvastatin Calcium] 1 tab PO DAILY 01/25/21 [History] traMADol [Ultram] 0.5 - 1 tab PO TID PRN 01/25/21 [History] Past Medical History HEENT History: Reports: Impaired Vision, Other (See Below) Other HEENT History: recent retinal scans at [place] Cardiovascular History: Reports: Hypertension, NH, Stents Respiratory History: Reports: COPD Gastrointestinal History: Reports: Cholelithiasis, GERD Genitourinary History: Reports: Prostate Disorder, Other (See Below) Other Genitourinary History: kidney cyst left. stage 3 kidney disease Musculoskeletal History: Reports: Back Pain, Chronic, Fracture, Osteoarthritis Neurological History: Reports: Concussion, Headaches, Chronic Dermatologic History: Reports: Other (See Below) Other Dermatologic History: rash on feet. - Infectious Disease History Infectious Disease History: Reports: Chicken Pox, Measles, Mumps - Past Surgical History HEENT Surgical History: Reports: None Cardiovascular Surgical History: Reports: None Respiratory Surgical History: Reports: None GI Surgical History: Reports: Cholecystectomy, Colonoscopy, Hernia Repair/Other Male Surgical History: Reports: Vasectomy Neurological Surgical History: Reports: Lumbar Spine Musculoskeletal Surgical History: Reports: Shoulder Surgery, Other (See Below) Other Musculoskeletal Surgeries/Procedures:: hand repair with pin. back surgery x4. 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 Denies: Throat Pain, Vision Change Respiratory: Denies: Shortness of Breath Cardiovascular: Denies: Chest Pain GI/Abdominal: Denies: Abdominal Pain, Nausea, Vomiting Neurological: Reports: No Symptoms ED EXAM, GENERAL - Physical Exam Exam: See Below Exam Limited By: No Limitations General Appearance: Alert, No Apparent Distress Head: Atraumatic Respiratory/Chest: No Respiratory Distress, Wheezing (Diffuse expiratory wheezes are heard bilaterally and a few scattered rhonchi) Cardiovascular: Regular Rate, Rhythm Neurological: Alert, Oriented Psychiatric: Normal Affect, Normal Mood Skin Exam: Warm, Dry Course - Vital Signs Last Recorded V/S: Last Vital Signs Temp 97.4 F 01/25/21 03:00 Pulse 72 01/25/21 03:00 Resp 20 01/25/21 03:00 BP 149/91 H 01/25/21 03:00 Pulse Ox 94 L 01/25/21 03:00 - Re-Assessments/Exams Free Text/Narrative Re-Assessment/Exam: 01/25/21 03:30 Reviewed his medical records and his chest x-ray he had last week was read as normal, Covid was negative. He just finished a course of Zithromax and is wondering if he needs "stronger antibiotics". I explained to him that this is an inflammatory process, very likely not bacterial especially if it is not responding to the antibiotics. Initially I offered a course of steroids but that is when he told me he cannot take steroids due to his steroid-induced retinopathy. I think it would be probably safe to use a steroid inhaler but I would like him to get the okay to use that from his primary providers. 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 Otherwise a pulmonary consultation for bronchoscopy may be needed. Sepsis Event Note (ED) - Evaluation Sepsis Screening Result: No Definite Risk
== END 2021-01-25 03:42 | disposition home or self-care (01) ==
LOC: JP.ED 02:34
DX: J40 Bronchitis, not specified as acute or chronic (principal); I10 Essential (primary) hypertension; I25.2 Old myocardial infarction; J44.9 Chronic obstructive pulmonary disease, unspecified; M19.90 Unspecified osteoarthritis, unspecified site; Z87.891 Personal history of nicotine dependence; Z88.8 Allergy status to other drugs, medicaments and biological substances; Z88.1 Allergy status to other antibiotic agents; Z79.82 Long term (current) use of aspirin; Z79.02 Long term (current) use of antithrombotics/antiplatelets; Z79.899 Other long term (current) drug therapy
CPT/HCPCS: 99283

== ENCOUNTER 2021-03-26 03:31 | Emergency (ER) | payer MEDICARE, BC ==
[2021-03-26 03:48] VITALS: BP 159/88; PULSE 81
== END 2021-03-26 05:31 | disposition home or self-care (01) ==
LOC: JP.ED 03:31
DX: F41.9 Anxiety disorder, unspecified (principal); I45.10 Unspecified right bundle-branch block; I12.9 Hypertensive chronic kidney disease with stage 1 through stage 4 chronic kidney disease, or unspecified chronic kidney disease; N18.30 Chronic kidney disease, stage 3 unspecified; I25.2 Old myocardial infarction; J44.9 Chronic obstructive pulmonary disease, unspecified; M19.90 Unspecified osteoarthritis, unspecified site; Z88.8 Allergy status to other drugs, medicaments and biological substances; Z88.1 Allergy status to other antibiotic agents; Z79.82 Long term (current) use of aspirin; Z79.899 Other long term (current) drug therapy; Z79.02 Long term (current) use of antithrombotics/antiplatelets
CPT/HCPCS: 36415; 71046; 71046-26; 80053; 83605; 83880; 84145; 84484; 85025; 86140; 93005; 93010; 99285; 99285-25

== ENCOUNTER 2021-04-12 02:41 | Emergency (ER) | payer MEDICARE, BC ==
[2021-04-12 03:24] VITALS: BP 153/86; PULSE 77
[2021-04-12] MEDS ORDERED: traZODone 50 MG Tab PO ONE (04:05)
== END 2021-04-12 04:25 | disposition home or self-care (01) ==
LOC: JP.ED 02:41
DX: J20.9 Acute bronchitis, unspecified (principal); G57.00 Lesion of sciatic nerve, unspecified lower limb; I25.2 Old myocardial infarction; I12.9 Hypertensive chronic kidney disease with stage 1 through stage 4 chronic kidney disease, or unspecified chronic kidney disease; N18.30 Chronic kidney disease, stage 3 unspecified; K21.9 Gastro-esophageal reflux disease without esophagitis; Z88.8 Allergy status to other drugs, medicaments and biological substances; Z88.1 Allergy status to other antibiotic agents; Z79.82 Long term (current) use of aspirin; Z79.899 Other long term (current) drug therapy
CPT/HCPCS: 99284; A9270

== ENCOUNTER 2023-04-03 09:20 | Emergency (ER) | payer MEDICARE, BC ==
[2023-04-03 09:30] VITALS: BP 145/76; PULSE 69
== END 2023-04-03 10:22 | disposition home or self-care (01) ==
LOC: JP.ED 09:20
DX: G89.29 Other chronic pain (principal); M54.50 Low back pain, unspecified; E66.9 Obesity, unspecified; I10 Essential (primary) hypertension; I25.2 Old myocardial infarction; J44.9 Chronic obstructive pulmonary disease, unspecified; Z68.39 Body mass index [BMI] 39.0-39.9, adult; Z87.891 Personal history of nicotine dependence; Z79.82 Long term (current) use of aspirin; Z88.1 Allergy status to other antibiotic agents; Z88.8 Allergy status to other drugs, medicaments and biological substances; Z79.899 Other long term (current) drug therapy
CPT/HCPCS: 99283; 99284